=== PATIENT | female | born 1970 | race Hispanic/Latino ===

== ENCOUNTER 2019-03-15 13:52 | Emergency (ER) | payer OTHER ==
[~2019-03-15] VITALS: Ht 160 cm; Wt 88.9 kg
--- OUTSIDE RECORDS SUMMARY | 2019-03-15 13:54 | XMS REPORT | Clinical Summary ---
Author Author [facility] Address Unknown Phone Unavailable Care Team Providers Care Drug Safety Assistant Name Role Phone Asked, No Pcp PCP Unavailable Allergies No Known Allergies Medications End Date Status Medication Sig Dispensed Refills Start Date Active aspirin (ECOTRIN) 81 MG Take 81 mg by 0 enteric coated tablet mouth every other day. Active UNABLE TO FIND Med Name: 0 Novalin ("over the counter insulin") 70-30 Active Problems Problem Noted Date Lump of left breast 03/09/2019 Encounters Care Team Description Date Type Specialty Bisi Robertson MD Lump of left breast (Primary Dx); Family history of colon cancer 03/09/2019 Office Visit Breast Surgery after 03/14/2018 Family History Medical History Relation Name Comments Breast cancer Maternal Aunt Colon cancer Maternal no diagnosed until Grandfather Colon cancer Maternal Uncle Colon cancer Mother Relation Name Status Comments Maternal Aunt Alive Maternal Grandfather (Age 81) Maternal Uncle Alive Mother Alive Social History Date Tobacco Use Types Packs/Day Years Used Current Every Day Smoker Cigarettes 0.25 2.5 Smokeless Tobacco: Never Used Alcohol Use Drinks/Week oz/Week Comments No Alcohol Habits Answer Date Recorded How often do you have a drink containing alcohol? Never 03/09/2019 How many drinks containing alcohol do you have on Not asked a typical day when you are drinking? How often do you have six or more drinks on one Not asked occasion? Sex Assigned at Date Recorded Not on file Industry Job Start Date Occupation Not on file Not on file Not on file Travel End Travel History Travel Start No recent travel history available. Last Filed Vital Signs Time Taken Vital Sign Reading 03/09/2019 8:25 AM CDT Blood Pressure 109/71 03/09/2019 8:25 AM CDT Pulse 55 03/09/2019 8:25 AM CDT Temperature 36.4 C (97.6 F) - Respiratory Rate - - Oxygen Saturation - - Inhaled Oxygen - Concentration 03/09/2019 8:25 AM CDT Weight 89 kg (196 lb 3.2 oz) - Height - - Body Mass Index - Plan of Treatment Care Team Description Date Type Specialty Rosas Webster MD [id number] [address] [phone] 03/19/2019 Office Visit Family Medicine 03/23/2019 Clinical Oncology Support Health Maintenance Due Date Last Done Comments CERVICAL CANCER SCREENING 1993 INFLUENZA VACCINE 06/03/2019 Results Not on fileafter 03/14/2018 Insurance Payer Benefit Subscriber ID Type Phone Address Plan / Group [employer] xxxxxxxxx-xx PPO /[employer] SIG ADMIN Advance Directives Patient has advance care planning documents on file. For more information, anand ackerman contact: Shay Hernández [address] [place] [address]
--- OUTSIDE RECORDS SUMMARY | 2019-03-15 13:55 | XMS REPORT ---
Author Author [facility] Address Unknown Phone Unavailable Care Team Providers Care Coil Rewind Machine Operator Name Role Phone Unavailable Unavailable Payers Payer Name Policy Type Policy Number Effective Date Expiration Date Problems This patient has no known problems. Allergies, Adverse Reactions, Alerts Allergy Name Allergy Type Status Severity Reaction(s) Onset Date Inactive Date Treating Clinician Comments clavulanic acid DA Active ND 2018-07-06 00:00:00 amoxicillin DA Active ND 2018-07-06 00:00:00 No Known Allergies DA Active U 2017-07-13 00:00:00 Medications This patient has no known medications.
[2019-03-15 14:43] LABS: BASOPHILS # (AUTO) 0.1 (0.0-0.1); BASOPHILS % 0.9 % (0.0-1.0); EOSINOPHILS # (AUTO) 0.3 (0.0-0.4); EOSINOPHILS % 2.8 % (0.0-6.0); HEMATOCRIT 39.3 % (34.2-44.1); HEMOGLOBIN 13.7 g/dL (12.0-16.0); LYMPHOCYTES # (AUTO) 1.9 (1.0-3.2); LYMPHOCYTES % 19.4 % (18.0-39.1); MEAN CORPUSCULAR HEMOGLOBIN 28.2 pg (28-32); MEAN CORPUSCULAR HGB CONC 34.9 g/dL (31-35); MEAN CORPUSCULAR VOLUME 80.9 fL (81-99); MONOCYTES # (AUTO) 0.4 (0.2-0.8); MONOCYTES % 4.5 % (4.4-11.3); NEUTROPHILS # (AUTO) 6.9 (2.1-6.9); NEUTROPHILS % 71.2 % (38.7-80.0); PLATELET COUNT 293 x10e3/uL (140-360); RED BLOOD COUNT 4.86 x10e6/uL (3.6-5.1); RED CELL DISTRIBUTION WIDTH 13.9 % (11.7-14.4)
[2019-03-15 14:46] LABS: BILIRUBIN,URINE NEGATIVE (NEGATIVE); CLARITY,URINE SL CLOUDY (CLEAR); COLOR,URINE YELLOW (YELLOW); KETONES,URINE NEGATIVE (NEGATIVE); LEUKOCYTE ESTERASE ,URINE NEGATIVE (NEGATIVE); NITRITE,URINE NEGATIVE (NEGATIVE); PROTEIN,URINE DIPSTICK NEGATIVE (NEGATIVE); URINE UROBILINOGEN 0.2 mg/dL (0.2 - 1)
[2019-03-15 14:59] LABS: BACTERIA,URINE FEW /HPF; EPITHELIAL CELLS,URINE FEW /LPF; WBC,URINE (MAN) 0-5 /HPF (0-5)
[2019-03-15 15:02] LABS: ALANINE AMINOTRANSFERASE 22 IU/L (0-55); ALBUMIN 3.6 g/dL (3.5-5.0); ALBUMIN/GLOBULIN RATIO 0.9 (0.8-2.0); ALKALINE PHOSPHATASE 88 IU/L (40-150); ANION GAP 13.2 mmol/L (8-16); BLOOD UREA NITROGEN 11 mg/dL (7-26); BUN/CREATININE RATIO 13 (6-25); CALCIUM 9.7 mg/dL (8.4-10.2); CARBON DIOXIDE 23 mmol/L (22-29); CHLORIDE 104 mmol/L (98-107); CREATININE, SERUM 0.83 mg/dL (0.57-1.11); EST GLOMERULAR FILTRATION RATE > 60 ML/MIN (60-); GLUCOSE 270 mg/dL (74-118); POTASSIUM 4.2 mmol/L (3.5-5.1); SODIUM 136 mmol/L (136-145)
[2019-03-15 15:32] LABS: AMPHETAMINES SCREEN,URINE NEGATIVE (NEGATIVE); BENZODIAZEPINES SCREEN,URINE NEGATIVE (NEGATIVE); PHENCYCLIDINE SCREEN,URINE NEGATIVE (NEGATIVE)
[2019-03-15 15:41] LABS: AMYLASE 37 U/L (25-125); LIPASE 18 U/L (8-78)
[2019-03-15] MEDS ORDERED: SODIUM CHLORIDE 0.9% 1000ML 1,000 ML IV STA (16:25)
[2019-03-15 17:01] LABS: CREATINE KINASE 67 IU/L (29-168)
--- NOTE | 2019-03-15 17:10 | Diagnostic Imaging Report ---
EXAMINATION: CT of the abdomen and pelvis with contrast. TECHNIQUE: Spiral CT images of the abdomen and pelvis were performed from the lung bases to the lesser trochanters after the intravenous administration of 100 cc Isovue-370. Coronal and sagittal reformatted images were obtained. COMPARISON: None. CLINICAL HISTORY:Abdominal pain. Patient reports history of gallstones. DISCUSSION: ABDOMEN/PELVIS: LOWER THORAX:Unremarkable. HEPATOBILIARY: No focal hepatic lesions. No intra-or extrahepatic biliary ductal dilation. The gallbladder is normal. SPLEEN: No splenomegaly. PANCREAS: No focal masses or ductal dilatation. ADRENALS: No adrenal nodules. KIDNEYS/URETERS: No hydronephrosis, stones, or solid mass lesions. PELVIC ORGANS/BLADDER: Urinary bladder is unremarkable. Uterus is not identified and has presumably been removed. 3.2 cm left ovarian cyst. PERITONEUM/RETROPERITONEUM: No free air or fluid. LYMPH NODES: No pelvic sidewall, retroperitoneal, or mesenteric lymphadenopathy. VESSELS: Abdominal aorta, major branch vessels, and iliac arterial systems are well-visualized and patent. Portal vein, splenic vein, and central superior mesenteric vein are patent. GI TRACT: The large bowel shows no distention or wall thickening. There is distention of the terminal ileum to a maximum of 3.8 cm, with wall thickening, enhancement, and mesenteric inflammation. There is no upstream small bowel dilatation to suggest obstruction. Mildly prominent right lower quadrant mesenteric lymph nodes are not enlarged by CT criteria. The appendix is normal as seen on coronal image 45 through 59. BONES AND SOFT TISSUE: No bony destructive lesions. No soft tissue abnormalities. IMPRESSION: Inflammation of the terminal ileum and ileocecal valve may be seen in the setting of inflammatory bowel disease (Crohn's disease) or infectious enteritis. No drainable fluid collection or robson perforation. No radiopaque gallstones or biliary ductal dilatation per clinical query. Signed by: Dr. Edi Marina M.D. on 03/15/2019 5:07 PM
[2019-03-15] MEDS ORDERED: KETOROLAC TROMETHAMINE 30 MG/ML VIAL IV ONE (17:16)
[2019-03-15] MEDS ORDERED: KETOROLAC TROMETHAMINE 30 MG/ML VIAL ONE (17:17)
[2019-03-15] MEDS ORDERED: LOW DOSE ASPIRI81 MG PO (18:34)
[2019-03-15] MEDS ORDERED: NOVOLOG MI100 UNIT/1 SQ (18:34)
--- NOTE | 2019-03-15 18:44 | Diagnostic Imaging Report ---
Examination: Single AP view of the chest. COMPARISON: None. INDICATION: Chest pain DISCUSSION: Lines/tubes: None. Lungs: The lungs are well inflated and clear. No pneumonia or pulmonary edema. Pleura: No pleural effusion or pneumothorax. Heart and mediastinum: The heart and the mediastinum are unremarkable. Bones and soft tissues: No acute bony abnormalities. IMPRESSION: 1. No acute cardiopulmonary abnormalities. Signed by: Dr. dAdy Casillas M.D. on 03/15/2019 6:41 PM
[2019-03-15] MEDS ORDERED: SODIUM CHLORIDE 0.9% 50ML 50 ML ONE (19:09)
[2019-03-15] MEDS ORDERED: IOPAMIDOL 370 MG/ML 200 ML INFUS..BTL INJ ONE (19:09)
[2019-03-15 20:08] VITALS: BP 103/66
== END 2019-03-15 20:17 | disposition home or self-care (01) ==
LOC: ER 13:52
DX: R10.9 Unspecified abdominal pain (principal); K52.9 Noninfective gastroenteritis and colitis, unspecified; E11.9 Type 2 diabetes mellitus without complications
CPT/HCPCS: 36415; 71045; 74177; 80053; 80307; 81001; 82150; 82550; 82553; 83690; 84484; 85025; 99284; J1885; J7030; Q9967

== ENCOUNTER 2019-03-16 09:03 | Emergency (ER) | payer OTHER ==
[~2019-03-16] VITALS: Ht 160 cm; Wt 88.9 kg
[~2019-03-16 09:03] MED LIST: LOW DOSE ASPIRI81 MG PO; NOVOLOG MI100 UNIT/1 SQ
--- OUTSIDE RECORDS SUMMARY | 2019-03-16 09:06 | XMS REPORT | Clinical Summary ---
Author Author [facility] Address Unknown Phone Unavailable Care Team Providers Care Pipe Foreman Name Role Phone Asked, No Pcp PCP [...] cancer 03/09/2019 Office Visit Breast Surgery after 03/15/2018 Family History Medical History Relation Name Comments [...] Description Date Type Specialty Rosas Webster [place] [id number] [address] [phone] 03/19/2019 Office Visit Family Medicine 03/23/2019 Clinical Oncology Support Health Maintenance Due Date Last Done Comments CERVICAL CANCER SCREENING 1993 INFLUENZA VACCINE 06/03/2019 Results Not on fileafter 03/15/2018 Insurance Payer Benefit Subscriber ID Type Phone Address Plan / Group [employer] xxxxxxxxx-xx PPO /[employer] SIG ADMIN Advance Directives Patient has advance care planning documents on file. For more information, anand ackerman contact: Shay Hernández [address] [place] [address]
[2019-03-16] MEDS ORDERED: DICYCLOMINE HCL 20 MG/2 ML VIAL IM ONE (09:30)
--- NOTE | 2019-03-16 10:06 | Diagnostic Imaging Report ---
Exam: Abdominal film with upright chest film Clinical History: Abdominal pain Comparison: CT abdomen and pelvis 03/15/2019 DISCUSSION: Chest: The lungs are well-inflated and without focal consolidation, pleural effusion, or pneumothorax. Cardiomediastinal contour and pulmonary vasculature are within normal limits. No acute osseous abnormality. Abdomen: The bowel gas pattern shows no dilated, air-filled loops of bowel. No mass effect or organomegaly. No abnormal calcifications. No robson pneumoperitoneum. Regional skeletal structures are intact. IMPRESSION: No acute cardiopulmonary abnormality. Nonobstructive bowel gas pattern. No pneumoperitoneum. Signed by: Dr. Edi Marina M.D. on 03/16/2019 10:03 AM
== END 2019-03-16 11:51 | disposition home or self-care (01) ==
LOC: ER 09:03
DX: R10.84 Generalized abdominal pain (principal); K50.00 Crohn's disease of small intestine without complications
CPT/HCPCS: 74022; 99283; J0500